=== PATIENT | male | born 1960 | race Caucasian/White ===

== ENCOUNTER 2019-03-08 19:26 | Observation (INO) ==
[2019-03-08 20:33] LABS: BASO# 0.04 X1000 (0.0-0.2); BASO% 0.4 % (0.0-0.8); EOS# 0.25 X1000 (0.0-0.7); EOS% 2.6 % (0.0-10.0); HEMATOCRIT 43.5 % (42.0-52.0); HEMOGLOBIN 15.1 g/dL (14.0-18.0); IMM GRAN# 0.02 X1000 (0.0-0.04); IMM GRAN% 0.2 % (0.0-0.5); LYMPH# 4.01 X1000 (1.2-3.4); LYMPH% 41.1 % (20.5-51.1); MCH 30.5 PG (27-31); MCHC 34.7 g/dL (33-37); MCV 87.9 FL (81-99); MONO# 0.91 X1000 (0.11-0.59); MONO% 9.3 % (1.7-9.3); MPV 11.1 FL (7.4-10.4); NEUT# 4.52 X1000 (1.4-6.5); NEUT% 46.4 % (42.2-75.2); PLT 161 X1000 (130-400); RBC 4.95 XMIL (4.7-6.1); RDW 13.3 % (11.5-14.5); WBC 9.75 X1000 (4.8-10.8)
--- NOTE | 2019-03-08 20:46 | EKG Report ---
Test Performed on : 03/08/2019 7:39:02 PM Test Reason : cp Blood Pressure : / mmHG Vent. Rate : 048 BPM Atrial Rate : 048 BPM P-R Int : 000 ms QRS Dur : 130 ms QT Int : 522 ms P-R-T Axes : -08 -41 265 degrees QTc Int : 466 ms Undetermined rhythm Left axis deviation Left ventricular hypertrophy with QRS widening and repolarization abnormality Cannot rule out Anteroseptal infarct (cited on or before 30-MAR-2016) Abnormal ECG When compared with ECG of 30-MAR-2016 12:47, Current undetermined rhythm precludes rhythm comparison, needs review (RBBB and left anterior fascicular block) is no longer present Questionable change in initial forces of Anterior leads Unconfirmed Result
[2019-03-08 20:47] LABS: ALB/GLOB RATIO 1.8; ALBUMIN 4.6 g/dL (3.5-5.0); CALCIUM 9.3 mg/dL (8.8-10.2); CREATININE 1.6 mg/dL (0.7-1.2); POTASSIUM 3.6 mmol/L (3.5-5.1); TOTAL BILIRUBIN 0.29 mg/dL (0.20-1.00); TOTAL PROTEIN 7.1 g/dL (6.3-8.3)
[2019-03-08 21:15] LABS: INR 1.11; PROTIME 14.4 Seconds (11.0-16.0)
[2019-03-08 21:16] LABS: PTT 27.7 Seconds (22.3-41.8)
--- NOTE | 2019-03-08 21:17 | PROVIDER DOCUMENTATION ---
This chart was entered by Angi Rowley Scribe, acting as scribe for Chandler Rodriguez MD. HPI-Syncope/Dizziness - General Chief Complaint: Chest Pain Stated Complaint: SOB, DIZZY, LOW HEART BEAT Time Seen by Provider: 03/08/19 20:15 Source: patient Allergies/Adverse Reactions: Patient Allergies Allergy/AdvReac Type Severity Reaction Status Date / Time No Known Allergies Allergy Verified 03/30/16 13:12 Home Medications: Home Medication List Medication Instructions Recorded Confirmed Last Taken Type Aspirin [Aspirin EC] 81 mg PO DAILY 10/21/14 03/30/16 03/30/16 05:00 History Amiodarone [Cordarone] 200 mg PO DAILY 03/30/16 03/08/19 03/08/19 History Amlodipine [Norvasc] 10 mg PO DAILY 03/30/16 03/08/19 03/08/19 History Metoprolol Succinate E.r. [Toprol 25 mg PO DAILY 03/30/16 03/08/19 03/08/19 History Xl] ATORVAstatin [Lipitor] 20 mg PO DAILY 03/08/19 03/08/19 03/08/19 History Losartan [Cozaar] 25 mg PO DAILY 03/08/19 03/08/19 03/08/19 History - History of Present Illness-Syncope/Dizzy Nature of Presenting Problem: pt is a 58 yr old male presenting with 4 day complaint of dizziness, shortness of breath and fatigue. pt reports hx of tachy arrhythmia with rate of 160, pt takes Amiodadrone, pt reports he had been out for approx 1 month and began taking it again 4 days ago. pt denies any chest pain, admits significant weakness and shortness of breath, dyspnea with minimal exertion. pt is followed by Dr Bustillo, cardiology Prior Episodes: reports: multiple episodes today, recent history Onset/Duration: reports: 4 days ago Timing: reports: still present Position/Activity at time of episode: reports: sitting, lying, standing Loss of Consciousness: no loss of consciousness Location of injury. (If syncope resulted in an injury.): reports: none Current Symptoms: reports: short of breath, lightheaded, dizzy, lightheaded. denies: chest pain, abdominal pain, nausea, headache Recently Seen Here or By Another Healthcare Provider: Yes - Dizziness Severity in ED: reports: moderate Dizziness Related Current/Associated Symptoms: reports: weakness, lightheaded, dizzy. denies: headache, headache, blurred vision Any recent trauma/injury?: reports: none Modifying Factors: improves with: nothing Patient usually:: reports: walks without assistance Review of Systems - Adult - REVIEW OF SYSTEMS - ADULT Constitutional: reports: vanessa. denies: fever Eyes: denies: blurred vision, double vision Ears, Nose, Mouth & Throat: denies: tinnitus Cardiovascular: denies: chest pain, palpitations, syncope Respiratory: reports: dyspnea on exertion, shortness of breath. denies: cough Gastrointestinal: denies: abdominal pain, diarrhea, nausea, vomiting Genitourinary: denies: dysuria, frequency, flank pain Musculoskeletal: reports: no symptoms reported Integumentary: reports: no symptoms reported Neurological: reports: dizziness/vertigo. denies: headache/migraines, syncope Psychiatric: reports: no symptoms reported Endocrine: reports: no symptoms reported Hematologic/Lymphatic: reports: no symptoms reported Allergic/Immunologic: reports: no symptoms reported All Other Systems: Reviewed and Negative Past History - Adult - PAST MEDICAL HISTORY-ADULT Review of Records: reports: Old Records Reviewed, Nursing Assessment Review, Medications Reviewed, Social history reviewed & non-contributory. Major Childhood Illnesses: reports: denies history Cardiovascular: reports: cardiac disease, arrhythmia, murmur, PA Respiratory: reports: denies history Gastrointestinal: reports: GERD Obstetrical/Gynecological: reports: denies history Genitourinary: reports: denies history Musculoskeletal: reports: denies history Neurological: reports: denies history Endocrine/Immune: reports: denies history Other Conditions: reports: denies history - PRIOR SURGERIES/PROCEDURES Surgical/Procedure History: reports: none, other (cardiac cath) - IMMUNIZATION STATUS Childhood Immunizations: See Nurse Assessment Flu Vaccine: See Nurse Assessment - FAMILY HISTORY Family History: reviewed, not pertinent - SOCIAL HISTORY Smoking: cigarettes Provider spent 3-5 mins advising pt. on dangers of tobacco.: Discussed manners to quit use, and f/u contacts for add'l counseling. Living Situation: family Physical Exam-General - PHYSICAL EXAM-ADULT Initial Vital Signs Reviewed: Yes - CONSTITUTIONAL General Appearance: appears well, alert, no apparent distress - EYES Eyes: PERRL/EOMI - HEAD, EARS, NOSE, MOUTH & THROAT HENMT: normocephalic/atraumatic, moist mucous membranes, normal ENT inspection - NECK Neck: non-tender, full range of motion, supple, normal inspection - RESPIRATORY Respiratory: chest non-tender, lungs clear, normal breath sounds - CARDIOVASCULAR Cardiovascular: no edema, bradycardia (39), systolic murmur (pronounced systolic murmur) - GASTROINTESTINAL (ABDOMEN) Abdominal Exam: normal bowel sounds, non tender, soft - LYMPHATIC Lymphatic: no adenopathy - MUSCULOSKELETAL Back Exam: normal inspection, no CVA tenderness, no vertebral tenderness Extremity: normal range of motion, non-tender, normal gait, normal inspection - SKIN Integumentary: normal color, normal turgor, warm/dry - NEUROLOGIC Neurologic: grossly normal - PSYCHIATRIC Psych/Mental Status: normal mood/affect Progress - PLAN OF CARE/RESULTS Progress/Plan/Lab Results: Vital Signs - 8 hr 03/08/19 20:01 Temperature 98.1 F Pulse Rate 42 L Respiratory Rate 18 Blood Pressure 146/66 O2 Sat by Pulse Oximetry 95 Laboratory Results - last 24 hr 03/08/19 03/08/19 03/08/19 19:52 19:52 19:52 WBC 9.75 RBC 4.95 Hgb 15.1 Hct 43.5 MCV 87.9 MCH 30.5 MCHC 34.7 RDW Std Deviation 13.3 Plt Count 161 MPV 11.1 H Immature Gran % (Auto) 0.2 Neut % (Auto) 46.4 Lymph % (Auto) 41.1 Ashley % (Auto) 9.3 Eos % (Auto) 2.6 Baso % (Auto) 0.4 Immature Gran # (Auto) 0.02 Neut # (Auto) 4.52 Lymph # (Auto) 4.01 H Ashley # (Auto) 0.91 H Eos # (Auto) 0.25 Baso # (Auto) 0.04 PT INR PTT (Actin FS) Sodium 139 Potassium 3.6 Chloride 101 Carbon Dioxide 20 L Anion Gap 18 BUN 28 H Creatinine 1.6 H Estimated GFR/1.73 m2 45 BUN/Creatinine Ratio 18 Glucose 155 H Calculated Osmolality 286 Calcium 9.3 Total Bilirubin 0.29 AST 35 H ALT 35 Alkaline Phosphatase 87 Troponin T Aiu-[id number]-Nmknmomxlcu Pept 592 H Total Protein 7.1 Albumin 4.6 Globulin 2.5 Albumin/Globulin Ratio 1.8 03/08/19 03/08/19 19:52 19:52 WBC RBC Hgb Hct MCV MCH MCHC RDW Std Deviation Plt Count MPV Immature Gran % (Auto) Neut % (Auto) Lymph % (Auto) Ashley % (Auto) Eos % (Auto) Baso % (Auto) Immature Gran # (Auto) Neut # (Auto) Lymph # (Auto) Ashley # (Auto) Eos # (Auto) Baso # (Auto) PT 14.4 INR 1.11 PTT (Actin FS) 27.7 Sodium Potassium Chloride Carbon Dioxide Anion Gap BUN Creatinine Estimated GFR/1.73 m2 BUN/Creatinine Ratio Glucose Calculated Osmolality Calcium Total Bilirubin AST ALT Alkaline Phosphatase Troponin T < 0.010 Exb-X-Whntsumtwbt Pept Total Protein Albumin Globulin Albumin/Globulin Ratio Orders Category Date Time Status CHEST-1 VIEW [RAD] Stat Exams 03/08/19 19:58 Completed CBC WITH ELECTRONIC DIFF [HEME] Stat Lab 03/08/19 19:52 Completed COMPREHENSIVE METABOLIC PANEL [CHEM] Stat Lab 03/08/19 19:52 Completed PRO B-NATRIURETIC PEPTIDE Stat Lab 03/08/19 19:52 Completed PT [PROTIME WITH INR] [COAG] Stat Lab 03/08/19 19:52 Completed PTT [COAG] Stat Lab 03/08/19 19:52 Completed TROPONIN T Stat Lab 03/08/19 19:52 Completed URINALYSIS W/POSS RFLX CULT [URINALYSIS] Stat Lab 03/08/19 19:58 Uncollected EKG [EKG] Stat Ther 03/08/19 19:33 Draft Result Diagrams: 03/08/19 19:52 03/08/19 19:52 - EKG 1 Time of EKG reading by physician:: 19:39 EKG Read and Signed by:: Chandler Rodriguez EKG Interpretation (*Must complete 3 of following elements*): Abnormal (can not rule out anteroseptal infarct-age undetermined) Rate: 48 Rhythm: bradycardia Howard: left QRS: LVH (with QRS widening and repolarization abnormality) CT Interval: normal ST Wave: normal - XRAY 1 XRAY Study: Chest Impression: Normal ( EXAM: CHEST-1 VIEW INDICATION: sob TECHNIQUE: One view COMPARISON: 01/31/2017 FINDINGS: The lungs are grossly clear. There is no discrete pleural fluid collection or pneumothorax. The cardiomediastinal silhouette and central vasculature are grossly unremarkable. IMPRESSION: No evidence of acute pathology by plain radiograph. Electronically signed by Bud Alford 03/08/2019 9:48 PM 03/08/192147 Interpreting Physician: Bud Alford MD Dictated Date/Time: 03/08/192144 cc: Chandler Rodriguez MD; Cydney North MD) - CONSULTS/PCP/HOSPITALIST Notification #1 *Consult/PCP/Hospitalist*: Dr Lobo Time Discussed: 21:44 Consult Disposition: Will see in ED, Admit #2 Consult: Dr Ng Time Discussed: 21:44 Reason/Comments: advised to hold meds and admit Consult Disposition: Admit Departure - Departure Date of Disposition Decision: 03/08/19 Time of Disposition Decision: 21:45 DIAGNOSIS: Renal insufficiency, Symptomatic bradycardia, CHF (congestive heart failure) Disposition: ADMITTED INPATIENT 09 Certified Medical Emergency: Emergent Condition: Fair Referrals and Follow-Ups: Cydney North MD [Primary Care Provider] - - Critical Care Note This patient required my direct & personal management of CC.: No Attestation - Physician/ FABIOLA Attestation Patient care was provided by Advanced Practice Provider:: No The physician spent face to face time with patient:: Yes Advanced Practice Provider documentation review:: Supervising physician onsite and consulted in the evaluation and care of this patient. The physician did have a face to face encounter with the patient. This chart was documented by the indicated scribe, (Angi Rowley, [employer]) and accurately reflects the services I performed and decisions made by me, Chandler Rodriguez MD, as attested by the provider's signature.
--- NOTE | 2019-03-08 21:50 | Diag Imaging Result Doc PS360 ---
EXAM: CHEST-1 VIEW INDICATION: sob TECHNIQUE: One view COMPARISON: 01/31/2017 FINDINGS: The lungs are grossly clear. There is no discrete pleural fluid collection or pneumothorax. The cardiomediastinal silhouette and central vasculature are grossly unremarkable. IMPRESSION: No evidence of acute pathology by plain radiograph. Electronically signed by Bud Alford 03/08/2019 9:48 PM
[2019-03-08] MEDS ORDERED: TYLENOL PO PRN (23:07)
[2019-03-08] MEDS: NS 1,000 ML IV SCH (23:07)
[2019-03-08] MEDS ORDERED: LOVENOX SUBQ SCH (23:07)
[2019-03-08] MEDS ORDERED: ZOFRAN IV PRN (23:07)
[2019-03-09 00:49] LABS: URINE SOURCE CLEAN CATCH
[2019-03-09 01:13] LABS: BILIRUBIN URINE NEGATIVE (NEGATIVE); BLOOD URINE NEGATIVE (NEGATIVE); COLOR YELLOW; GLUCOSE URINE NEGATIVE (NEGATIVE); HEMOGLOBIN A1C 5.5 % (4.8-6.0); KETONE URINE NEGATIVE (NEGATIVE); LEUKOCYTES URINE NEGATIVE (NEGATIVE); NITRITE URINE NEGATIVE (NEGATIVE); PROTEIN URINE NEGATIVE (NEGATIVE); SP GRAVITY URINE 1.024; TURBIDITY URINE CLEAR (CLEAR); UROBILINOGEN URINE NORMAL (NORMAL)
[2019-03-09 01:14] LABS: UR EPITHELIAL CELLS <10 /HPF (<10); URINE BACTERIA NEGATIVE /HPF; URINE RBC <10 /HPF (<10); URINE WBC <10 /HPF (<10)
--- NOTE | 2019-03-09 01:25 | HISTORY AND PHYSICAL ---
CHIEF COMPLAINT: Low heartbeat, dizziness and fatigue. HISTORY OF PRESENT ILLNESS: This is a 58-year-old male who comes into the emergency room after having fatigue, lightheadedness, dizziness. He has atrial fibrillation. He was recently restarted from what I understand on his amiodarone by Dr. Lalo Bustillo, who is his primary corporate associate. I believe he was off of it around a month. At any rate, the patient denied any type of chest pain. Was having some shortness of breath at rest as well as dyspnea with minimal exertion. Has a past medical history of atrial fibrillation, coronary artery disease with previous NC, GERD, tobacco use and hypertension. He continued to have heart rate in the 40s and Dr. Ng, who was covering for Lalo Bustillo, recommended admission. He will be placed on PVC for further evaluation and treatment. PAST MEDICAL HISTORY: See HPI. PREVIOUS SURGICAL HISTORY: Heart catheterization. SOCIAL HISTORY: He is a 1 pack per day smoker. Smoked for multiple years. Does not wish to quit. Smoking cessation was gone over with the patient. He denies illicit drugs or alcohol. FAMILY HISTORY: Brother had brain cancer. Denies any other chronic illness. Unsure what his father from. Mother is living in her 90s. ALLERGIES: No known drug allergies. HOME MEDICATIONS: Amiodarone, aspirin, metoprolol, amlodipine, atorvastatin and losartan, potassium. REVIEW OF SYSTEMS: Fourteen point review of systems conducted with the patient. Pertinent positives listed above in the HPI. All other systems reviewed and found to be negative. PHYSICAL EXAMINATION: VITAL SIGNS: Temperature 98.1, pulse 42, respirations 18, blood pressure 146/66, oxygen saturation 95% on room air. GENERAL: Pleasant 58-year-old male lying in the ER stretcher, answers all questions appropriately, is alert and oriented times 3, is in no acute distress. HEENT: Head is atraumatic, normocephalic. Pupils equal, round, reactive to light. Extraocular eye movement is intact. Sclerae are anicteric. Conjunctiva is pink. Oral mucosa is moist. NECK: Supple. No JVD. No thyromegaly. Trachea is midline. No cervical lymphadenopathy. CARDIAC: S1, S2 appreciated. No murmurs, gallops, rubs. He is bradycardic. LUNGS: Clear to auscultation bilaterally. No rhonchi, wheezes, rales. Symmetric rise and fall with respirations. ABDOMEN: Soft, nondistended, nontender. Bowel sounds present all 4 quadrants, normoactive. No pulsatile mass. No organomegaly. EXTREMITIES: No clubbing, cyanosis or edema. One-plus pedal pulses. GENITOURINARY: No bladder distention. Patient voids. Otherwise deferred. NEUROLOGICAL: Alert and oriented times 3. Cranial nerves 2 through 12 grossly intact. DIAGNOSTIC DATA: EKG shows bradycardia, left axis deviation. It is regular at this time. Chest x-ray: No pulmonary edema. No infiltrates. LABORATORY DATA: CBC within normal limits. Sodium 139. Potassium 3.6. Chloride 101. Carbon dioxide 20. BUN 28. Creatinine 1.6. Glucose 155. ASSESSMENT AND PLAN: 1. Symptomatic bradycardia. We will hold patient's amiodarone and beta eva at this time. Consult Dr. Lalo Bustillo. We will also check a TSH. Continue to trend cardiac enzymes. However, he is not having overt chest pain. 2. Hypertension. We will continue Norvasc. 3. Acute kidney injury. We will do laboratory workup and give fluids. Recheck laboratory data tomorrow morning. 4. Hyperglycemia. Check hemoglobin A1c. Further recommendations per patient clinical course. Dictated by LARY Estrada for Trever Gonzalez MD I have performed a face to face diagnostic evaluation. Labs/ Xrays- reviewed. Exam- Chest -clear, CV- regular. A/P- Bradycardia- Admit, monitor on telemetry, Cardiology consult. Dr. Gonzalez cc: LARY Estrada MD [facility]
[2019-03-09 01:56] LABS: CK INDEX 2.3 (0.0-2.5); CK-MB 8.93 ng/mL (0.0-5.0)
[2019-03-09 06:24] LABS: AGAP 10; BUN 22 mg/dL (8-22); CHLORIDE 100 mmol/L (98-107); COSMO 271; CREATININE 1.1 mg/dL (0.7-1.2); ESTIMATED GFR > 60; GLUCOSE 94 mg/dL (70-104); POTASSIUM 3.9 mmol/L (3.5-5.1); SODIUM 134 mmol/L (136-145); TCO2 24 mmol/L (25-35)
[2019-03-09 08:44] LABS: CK INDEX 2.6 (0.0-2.5); CK-MB 8.51 ng/mL (0.0-5.0)
[2019-03-09] MEDS ORDERED: COZAAR PO SCH (09:00)
[2019-03-09] MEDS ORDERED: ASPIRIN PO SCH (09:00)
[2019-03-09] MEDS ORDERED: NORVASC PO SCH (09:00)
--- NOTE | 2019-03-09 10:42 | Diag Imaging Result Doc PS360 ---
EXAM: US RENAL 2 (RETROPER) COMPLETE HISTORY: LISSY TECHNIQUE: Renal ultrasound COMPARISON: None. FINDINGS: The right kidney measures 12.0 x 5.1 x 5.9 cm. Normal renal echotexture and cortical thickness. No renal stone or hydronephrosis. No renal mass. The left kidney measures 12.4 x 5.7 x 6.0 cm. There is a dromedary hump. Normal renal echotexture and cortical thickness. No renal stone or hydronephrosis. No renal mass. The urinary bladder is moderately distended and is normal. IMPRESSION: Normal renal ultrasound. Electronically signed by Bert Looney 03/09/2019 10:40 AM
[2019-03-09] MEDS: LIPITOR PO SCH (11:59)
[2019-03-09] MEDS: NS 1,000 ML IV SCH (12:02)
--- NOTE | 2019-03-09 13:09 | EKG Report ---
Test Performed on : 03/09/2019 12:23:08 PM Test Reason : bradycardia Blood Pressure : / mmHG Vent. Rate : 044 BPM Atrial Rate : 044 BPM P-R Int : 236 ms QRS Dur : 140 ms QT Int : 548 ms P-R-T Axes : 044 -50 -65 degrees QTc Int : 468 ms Marked sinus bradycardia. with 1st degree AV block. Right bundle branch block Left anterior fascicular block Bifascicular block Voltage criteria for left ventricular hypertrophy Anteroseptal infarct (cited on or before 30-MAR-2016) T wave abnormality, consider inferior ischemia Abnormal ECG When compared with ECG of 08-MAR-2019 19:39, (Unconfirmed) Concealed PACs are no longer seen Confirmed by Molly LAZCANO, Luisito Angulo ([id number]) on 03/09/2019 2:05:31 PM
[2019-03-09] MEDS: COZAAR PO SCH (14:29)
--- NOTE | 2019-03-09 14:31 | CONSULTATION ---
DATE OF CONSULTATION: 03/09/2019 IMPRESSION: 1. Marked sinus bradycardia. 2. Paroxysmal atrial fibrillation suppressed with low-dose amiodarone. 3. Hypertrophic cardiomyopathy with obstructive outflow tract physiology. No history of premature sudden . 4. Hypertension. 5. Mild coronary atherosclerosis by previous coronary angiography 2-3 years ago. RECOMMENDATIONS: 1. Discontinue amiodarone and metoprolol. 2. Discontinue amlodipine. 3. Manage blood pressure with ARB losartan. 4. Given hypertrophic cardiomyopathy coupled with paroxysmal atrial fibrillation, favor anticoagulation. This was discussed with the patient and we will start him on Eliquis. 5. Once patient is feeling better with ambulation and has stable blood pressure and heart rate, it would be reasonable for him to be discharged. He also needs to follow up with swing saw operator/arrhythmia service to consider merits of permanent pacemaker to facilitate further treatment of his atrial fibrillation which is paroxysmal. Consideration might even be given to the possibility of ablation of atrial fibrillation (pulmonary vein isolation procedure) in deference antiarrhythmic therapy. 6. In absence of family history of sudden cardiac , defibrillator does not appear to be needed. HISTORY: This 58-year-old white male with past history of hypertrophic cardiomyopathy with left ventricular outflow tract obstructive physiology, paroxysmal atrial fibrillation, hypertension, mild coronary atherosclerosis was admitted for further evaluation after she presented with dizziness/lightheadedness which was rather persistent and marked sinus bradycardia, as well as low blood pressure. Clinical features also suggested intravascular volume depletion. But he has not had any recent problems with diarrhea or vomiting. He has received some intravenous fluids. Amiodarone and metoprolol have been held. He is starting to feel better. He relates some associated fatigue exertional shortness of breath with his clinical presentation. There has been no angina. There has been no syncope. FAMILY HISTORY: Negative for sudden cardiac . PAST MEDICAL HISTORY: 1. Hypertrophic cardiomyopathy with obstructive physiology question with left ventricular outflow tract obstructive physiology. Echocardiography in 2016 demonstrated striking resting left ventricular outflow tract. Peak gradient of over 60 mmHg which increased over 100 with Valsalva maneuver. He also has paroxysmal atrial fibrillation. Most recent echocardiography shows these values have decreased significantly with medical treatment. 2. Paroxysmal atrial fibrillation. The patient has continued on low-dose amiodarone to maintain sinus rhythm. 3. Hypertension. 4. Mild coronary atherosclerosis by previous coronary angiography. PAST SURGICAL HISTORY: None. ALLERGIES: No known drug allergies. MEDICATIONS PRIOR TO ADMISSION: As listed. 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 He smokes 1 pack of cigarettes per day. He does not use alcohol. FAMILY HISTORY: Negative for premature coronary disease and negative for premature cardiac . REVIEW OF SYSTEMS: Pulmonary: Noteworthy for some exertional fatigue and shortness of breath of late. There has been no orthopnea. Gastrointestinal: Noncontributory. Constitutional: Noncontributory. Remainder of review of systems negative/noncontributory with 14 total systems reviewed PHYSICAL EXAMINATION: General: This is an overweight middle-aged male in no distress. Vital signs: Blood pressure 126/65, heart rate 43 and regular with ECG monitor showing sinus bradycardia. Oxygen saturation 97% on room air. Weight 186 pounds. HEENT: Extraocular movements appear intact. Mucous membranes are moist. Neck: Supple without jugular venous distention. There are no carotid bruits. Chest: Clear to auscultation. Cardiac: Regular bradycardia without appreciable murmur or gallop. Abdomen: Soft. Bowel sounds are normal. Extremities: Without edema. Neurologic: Reveals him to be alert and fully oriented. Speech is fluent. Moves all 4 extremities equally well. Skin: Warm and dry. Psychiatric: Reveals mood to be appropriate. PERTINENT DATA: Twelve lead EKG obtained on admission demonstrates sinus rhythm with second- degree AV block 2:1 with occasional premature ventricular complex. Left axis deviation, and left ventricular hypertrophy demonstrated. Nonspecific ST and T-wave abnormality demonstrated. Repeat EKG today shows marked sinus bradycardia with a heart rate of 44 beats per minute and first-degree AV block. Right bundle branch block and left anterior fascicular block demonstrated. Nonspecific ST and T-wave abnormality demonstrated. LABORATORY DATA: Includes a white blood cell count 9.75, hematocrit 43.5, hemoglobin 15.1, platelet count 161,000. Pro time 14.4, INR 1.1, PTT 27.6, sodium 134, potassium 3.9, chloride 100, carbon dioxide 24, BUN 22, creatinine 1.1. Glucose 94, initial troponin less than 0.01. Followup troponin less than 0.01. TSH 2.72. cc: Amos Pereira MD
[2019-03-09 17:12] LABS: CK INDEX 2.8 (0.0-2.5); CK-MB 7.17 ng/mL (0.0-5.0)
--- NOTE | 2019-03-09 18:47 | PROGRESS NOTE ---
DATE: 03/09/2019 SUBJECTIVE: Today, Mr. Henao refers to be doing a little better, not as weak as before. OBJECTIVE: Vital signs: Blood pressure 127/63, pulse of 44, respiration is 20, temperature is 98.3 degrees. General: Mr. Henao is a 58-year-old, gentleman. He is in bed, in no distress. Mucosa is pink and moist. Anicteric. Acyanotic. Neck: Supple. Chest: Clear to auscultation. Cardiovascular: Remarkably bradycardic, but no murmurs, rubs, or gallops. Abdomen: Soft. Extremities: No pedal edema. Central nervous system: Patient is awake, alert, and oriented. LABORATORY AND DIAGNOSTIC DATA: CBC is unremarkable. Chemistry shows sodium of 134. The rest of chemistry is unremarkable. Troponins are negative. Chest x-ray shows no evidence of acute pathology. Renal ultrasound showed normal renal ultrasound. Urinalysis is completely normal. ASSESSMENT/PLAN: 1. Symptomatic bradycardia as a result of carvedilol and amiodarone. Medications have been discontinued. Cardiology is on board. 2. History of atrial fibrillation. The patient was on amiodarone and carvedilol. However, he became remarkably bradycardic, so this was discontinued. The patient is currently in sinus rhythm. He might eventually be needing to be evaluated by EPS for sick sinus syndrome at some time. 3. Hypertension. 4. History of hypertrophic cardiomyopathy. Noted. 5. Acute kidney injury on presentation secondary to volume depletion. Improved with gentle hydration overnight. cc: Mahad Mcdonald MD
[2019-03-09] MEDS: ELIQUIS PO SCH (20:08)
[2019-03-10] MEDS: NS 1,000 ML IV SCH (01:17)
--- NOTE | 2019-03-10 06:20 | EKG Report ---
Test Performed on : 03/10/2019 06:17:04 AM Test Reason : bradycardia Blood Pressure : / mmHG Vent. Rate : 043 BPM Atrial Rate : 043 BPM P-R Int : 222 ms QRS Dur : 136 ms QT Int : 542 ms P-R-T Axes : 035 -46 -51 degrees QTc Int : 457 ms Marked sinus bradycardia. with 1st degree AV block. Right bundle branch block Left anterior fascicular block Bifascicular block Voltage criteria for left ventricular hypertrophy Possible Anteroseptal infarct (cited on or before 30-MAR-2016) Abnormal ECG When compared with ECG of 09-MAR-2019 12:23, No significant change was found Confirmed by Molly LAZCANO, Luisito Angulo ([id number]) on 03/11/2019 8:23:24 AM
[2019-03-10] MEDS: LIPITOR PO SCH (08:28)
[2019-03-10] MEDS: ELIQUIS PO SCH (08:29)
[2019-03-10] MEDS: COZAAR PO SCH (08:29)
[2019-03-10] MEDS ORDERED: DUONEB (A & A) INH PRN (10:37)
[2019-03-10 11:06] LABS: ALLEN TEST YES; BE -2.4 mmoll (-3.0-3.0); BLOOD TYPE ARTERIAL; METHB 0.9 % (0.0-1.5); O2(CT) 21.5 mL/dL (15.0-23.0); O2HB 94.6 % (95.0-99.0); PCO2(98.6) 35 mmHg (35-45); PO2(98.6) 76 mmHg (60-100); SAMPLE BLOOD; SAO2 96.7 % (95.0-100.0); THB 16.2 g/dL (11.5-17.4)
[2019-03-10 11:07] LABS: MODALITY ROOM AIR
--- NOTE | 2019-03-10 11:16 | PROGRESS NOTE ---
DATE: 03/10/2019 SUBJECTIVE: This morning Mr. Henao refers to be doing a lot better. He was sitting up in a chair. He denies any more syncope or dizziness. OBJECTIVE: Vital signs: Blood pressure is 133/64, pulse of 54, respirations 15, temperature 97.9 degrees. General: Mr. Henao is a 58-year-old male. He was sitting up in a chair. No distress. HEENT: Mucosa is pink and moist. Anicteric. Acyanotic. Neck: Supple. No JVD. Chest: Air entry is bilaterally reduced. There is diffuse end-expiratory wheezing and rhonchi. No crackles. Cardiovascular: Regular rate and rhythm. There is a 2/6 holosystolic murmur on the apex that radiates to the axilla. Abdomen: Soft, nontender. Bowel sounds present. Extremities: No pedal edema. 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 Neurologic: There is no focal neurologic deficit. LABORATORY DATA: None for today. IMAGING STUDIES: None for today. ASSESSMENT: 1. Symptomatic bradycardia on presentation, presumably related to beta eva and amiodarone for atrial fibrillation treatment. Medications have been discontinued. The patient is currently asymptomatic, but remains bradycardic. The heart rate seems to go in the high 50s to the 60s when the patient is mobile. 2. History of atrial fibrillation, currently sinus but bradycardic. 3. History of hypertrophic cardiomyopathy. 4. Acute kidney injury, improved. 5. Hypertension, controlled. 6. Bronchospasms, with suspected underlying undiagnosed COPD. We are going to get a low-dose CT scan to check on the lung parenchyma and also to rule out any mass. 7. Active tobacco use and abuse prior to hospitalization. The patient has been counseled. PLAN: In general, I think Mr. Henao is doing a lot better. We are going to get PT to walk him around. We are also going to check his O2 saturations, both at rest and walking. We will do a low-dose CT scan to check on the possible COPD, and look at the lung parenchyma to rule out any nodules or masses. The patient has been advised on tobacco cessation. We are pending evaluation from a Cardiology standpoint to see if the patient can be discharged today or tomorrow. cc: Mahad Mcdonald MD
[2019-03-10 12:44] VITALS: BP 134/66
[2019-03-10] MEDS: DUONEB (A & A) INH SCH ×2 (12:46→15:34)
--- NOTE | 2019-03-10 15:56 | Diag Imaging Result Doc PS360 ---
EXAM: CT THORAX W/CONTRAST 03/10/2019 HISTORY: Dyspnea.suspected COPD TECHNIQUE: This exam was performed using automated exposure control, adjustment of mA or kV according to patient size, and/or use of iterative reconstruction technique. COMMENT: There is some patchy air trapping in the right lower lobe. There are calcifications in the right lower lobe in conjunction with linear scar tissue. This has not changed since 07/06/2017. No evidence of acute pulmonary parenchymal disease is present. There are nonspecific aorticopulmonary window and paratracheal nodes which do not appear to have changed significantly since the previous study. There are no abnormal fluid collections. There is no evidence of acute disease in the visualized portion of the abdomen. The regional skeleton appears to be intact. There are spondylotic changes in the thoracic spine. IMPRESSION: Fibrotic scars in the right lower lobe. Minimal focal emphysematous change in the right lower lobe. Electronically signed by Xavier Soria 03/10/2019 3:53 PM
--- NOTE | 2019-03-10 16:32 | DISCHARGE SUMMARY ---
ADMISSION DATE: 03/08/2019 DISCHARGE DATE: 03/10/2019 DISPOSITION: Home. FOLLOW-UP: 1. Dr. Cydney North. 2. Dr. Pineda. 3. Dr. Lalo Bustillo. CONSULTATION DURING THIS ADMISSION: Cardiology was consulted. Patient was seen by Dr. Pereira. INVASIVE PROCEDURES DONE DURING THIS ADMISSION: None. IMAGING STUDIES OF SIGNIFICANCE: 1. A chest x-ray showed no evidence of acute pathology. 2. A renal ultrasound showed normal ultrasound. 3. A CT scan of the chest showed some fibrotic scars in the right lower lobe and minimum focal emphysematous change in the right lower lobe. ADMISSION DIAGNOSES: 1. Symptomatic bradycardia. 2. Hypertension. 3. Hyperglycemia. DIAGNOSES AT THE TIME OF DISCHARGE: 1. Drug-induced symptomatic bradycardia (by beta eva and amiodarone; both have been discontinued). 2. History of atrial fibrillation. 3. 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 4. Acute kidney injury on presentation, resolved. 5. Hypertension controlled. 6. Bronchospasms, most likely due to underlying undiagnosed chronic obstructive pulmonary disease. 7. Active tobacco use and abuse prior to hospitalization; cessation has been advised. DISCHARGE MEDICATIONS: 1. 81 mg of aspirin. 2. Atorvastatin 20 mg daily. 3. Cozaar 25 mg p.o. daily. 4. Eliquis 5 mg b.i.d. 5. Spiriva inhaler. 6. Combivent inhaler p.r.n. for wheezing. PRESENTING COMPLAINT: Low heartbeat, dizziness, and fatigue. HISTORY OF PRESENT COMPLAINT: Mr. Henao is a 58-year-old male who has a history of atrial fibrillation on amiodarone and metoprolol. Has been having some fatigue, lightheaded, dizziness. Came to the emergency department and was found to be remarkably bradycardic, was admitted to [facility] for further medical care. HOSPITAL COURSE: Mr. Henao was admitted. His presentation was thought to be due to drug-induced bradycardia by beta eva and amiodarone. Both medications were discontinued. Cardiology was consulted. Patient was seen by Dr. Pereira, was followed up by Dr. Ng. This morning, Mr. Henao was also found to be remarkably bronchospastic, and with his background history of smoking, we thought he had an undiagnosed COPD. A CT scan of the chest was done. There was not any mass. There was some suggestion of emphysematous changes. He has been started on inhalers, and he has been advised 1st of all to stop tobacco product use and also to follow up with Pulmonary Medicine (Dr. Pineda). Mr. Henao was also evaluated for home O2 oxygen, but he seems to be saturating well. He did not qualify. All his discharge instructions have been discussed with him, and he voiced understanding. Please refer to my progress notes for today. Time spent for discharge is 38 minutes. cc: Mahad Mcdonald MD MTDD
== END 2019-03-10 17:03 | disposition home or self-care (01) ==
LOC: ED 19:26 → INTOOBSV 22:43 → SUATTDRO 22:43 → EDIPHOLD 22:43 → 2N 03-09 10:55
PROVIDERS: ATTEND Internal Medicine